=== PATIENT | female | born 1975 | race Caucasian/White ===

== ENCOUNTER 2019-12-21 14:36 | Emergency (ER) | payer OTHER ==
[~2019-12-21] VITALS: Ht 157.5 cm; Wt 79.9 kg
[2019-12-21 15:20] LABS: BASOPHILS # (AUTO) 0.1 X10'3 (0-0.2); EOSINOPHILS # (AUTO) 0.2 X10'3 (0-0.9); HEMATOCRIT 41.1 % (35.0-45.0); HEMOGLOBIN 13.7 g/dl (12.0-16.0); LYMPHOCYTES # (AUTO) 1.9 X10'3 (1.1-4.8); LYMPHOCYTES % (AUTO) 24.1 % (21-51); MEAN CORPUSCULAR HEMOGLOBIN 28.2 PG (27.0-31.0); MEAN CORPUSCULAR HGB CONC 33.4 g/dL (33.0-36.5); MEAN CORPUSCULAR VOLUME 84.3 FL (78-98); MEAN PLATELET VOLUME 8.3 FL (7.4-10.4); MONOCYTES # (AUTO) 0.6 X10'3 (0-0.9); MONOCYTES % (AUTO) 7.2 % (2-12); NEUTROPHILS # (AUTO) 5.1 X10'3 (1.8-7.7); NEUTROPHILS % (AUTO) 65.7 % (42-75); PLATELET COUNT 248 X10'3 (140-440); RED BLOOD COUNT 4.88 X10'6 (4.20-5.60); RED CELL DISTRIBUTION WIDTH 13.7 % (11.5-14.5); WHITE BLOOD COUNT 7.8 X10'3 (4.5-11.0)
[2019-12-21 15:35] LABS: ALANINE AMINOTRANSFERASE 15 U/L (12-78); ALBUMIN 3.5 G/DL (3.4-5.0); ALBUMIN/GLOBULIN RATIO 0.9 (1.1-1.5); ALKALINE PHOSPHATASE 88 IU/L (46-116); ANION GAP 8 (8-16); ASPARTATE AMINO TRANSFERASE 11 U/L (10-37); BILIRUBIN,TOTAL 0.3 MG/DL (0.1-1.0); BLOOD UREA NITROGEN 12 MG/DL (7-18); BUN/CREATININE RATIO 14.1 (6.6-38.0); CALCIUM 8.8 MG/DL (8.5-10.1); CHLORIDE 104 MMOL/L (99-107); CREATININE 0.85 MG/DL (0.40-0.90); GLUCOSE 119 MG/DL (70-104); POTASSIUM 3.7 MMOL/L (3.5-5.1); SODIUM 138 MMOL/L (135-145); TOTAL CARBON DIOXIDE 25.6 MMOL/L (24-32); TOTAL PROTEIN 7.4 G/DL (6.4-8.2); eGFR 72 ML/MIN
[2019-12-21] MEDS ORDERED: normal saline 1000ML IV soln IVB ONE (17:35)
[2019-12-21 19:14] VITALS: BP 114/71
== END 2019-12-21 19:17 | disposition home or self-care (01) ==
LOC: ER 14:37
DX: I49.3 Ventricular premature depolarization (principal); R06.02 Shortness of breath; R00.2 Palpitations; R42 Dizziness and giddiness; G43.909 Migraine, unspecified, not intractable, without status migrainosus; E78.00 Pure hypercholesterolemia, unspecified; J45.909 Unspecified asthma, uncomplicated; E05.90 Thyrotoxicosis, unspecified without thyrotoxic crisis or storm; Z88.0 Allergy status to penicillin; Z88.8 Allergy status to other drugs, medicaments and biological substances
CPT/HCPCS: 36415; 71045; 80053; 83880; 84484; 85025; 93005; 96360; 99285; J7030

== ENCOUNTER 2024-03-08 07:37 | Day surgery (SDC) | payer BC ==
[~2024-03-08] VITALS: Ht 157.5 cm; Wt 82.6 kg
[~2024-03-08 07:37] MED LIST: ceFAZolin 2gm in dextrose, iso 50 ML IV ONE
[2024-03-08 08:22] VITALS: BP 106/56; PULSE 61; RESP 12; TEMP 97.7; O2SAT 98
[2024-03-08 08:47] LABS: BASOPHILS % (AUTO) 0.6 % (0-1); EOSINOPHILS # (AUTO) 0.2 X10'3 (0-0.9); EOSINOPHILS % (AUTO) 3.5 % (0-6); HEMATOCRIT 45.1 % (35.0-45.0); HEMOGLOBIN 14.9 g/dl (12.0-16.0); LYMPHOCYTES # (AUTO) 1.8 X10'3 (1.1-4.8); LYMPHOCYTES % (AUTO) 25.4 % (21-51); MEAN CORPUSCULAR HEMOGLOBIN 28.5 PG (27.0-31.0); MEAN CORPUSCULAR HGB CONC 33.1 g/dL (33.0-36.5); MEAN PLATELET VOLUME 8.1 FL (7.4-10.4); MONOCYTES # (AUTO) 0.5 X10'3 (0-0.9); MONOCYTES % (AUTO) 7.6 % (2-12); NEUTROPHILS # (AUTO) 4.5 X10'3 (1.8-7.7); NEUTROPHILS % (AUTO) 62.9 % (42-75); PLATELET COUNT 244 X10'3 (140-440); RED BLOOD COUNT 5.25 X10'6 (4.20-5.60); RED CELL DISTRIBUTION WIDTH 13.9 % (11.5-14.5); WHITE BLOOD COUNT 7.1 X10'3 (4.5-11.0)
[2024-03-08] MEDS ORDERED: FLUO40CA PO (08:49)
[2024-03-08] MEDS ORDERED: METO-395 PO (08:49)
[2024-03-08] MEDS ORDERED: SUMA100T16 PO (08:49)
[2024-03-08] MEDS ORDERED: CETI10CA PO (08:49)
[2024-03-08] MEDS ORDERED: LEVO50TA PO (08:49)
[2024-03-08] MEDS ORDERED: FLEC50TA PO (08:49)
[2024-03-08] MEDS ORDERED: MAGN100T5 (08:50)
[2024-03-08] MEDS ORDERED: ROSU10TA72 PO (08:53)
[2024-03-08] MEDS ORDERED: OMEG-133 PO (08:54)
[2024-03-08 08:56] LABS: ALBUMIN 3.7 G/DL (3.4-5.0); ANION GAP 7 (8-16); BLOOD UREA NITROGEN 18 MG/DL (7-18); BUN/CREATININE RATIO 21.2 (10.0-20.0); CALCIUM 8.6 MG/DL (8.5-10.1); CHLORIDE 104 MMOL/L (99-107); CREATININE 0.85 MG/DL (0.40-0.90); GLUCOSE 86 MG/DL (70-104); MAGNESIUM 2.2 MG/DL (1.5-2.4); POTASSIUM 4.1 MMOL/L (3.5-5.1); SODIUM 138 MMOL/L (135-145); TOTAL CARBON DIOXIDE 26.9 MMOL/L (24-32); eCRCL 63 ML/MIN; eGFR 71 ML/MIN
[2024-03-08 08:58] LABS: PROTHROMBIN TIME 10.9 SECONDS (9.0-12.0)
[2024-03-08] MEDS: vancomycin 1,500 MG in NS 300ml IV soln IV ONE (09:08)
[2024-03-08] MEDS: normal saline 1000ml 1,000 ML IV SCH (09:08)
[2024-03-08] MEDS ORDERED: fentaNYL/PF 50MCG/1 ML 2ML syringe ONE (11:43)
[2024-03-08] MEDS ORDERED: midazolam 1 mg/ML 2ml injection ONE ×3 (11:43→12:37)
[2024-03-08] MEDS ORDERED: LIDOcaine 1% W/epiNEPHrine 1:100,000 20ml vial ONE (11:43)
[2024-03-08 13:00] VITALS: BP 101/63; PULSE 70; RESP 12; O2SAT 95
[2024-03-08 13:15] VITALS: BP 116/74; PULSE 70; RESP 12; O2SAT 96
[2024-03-08 13:30] VITALS: BP 112/69; PULSE 67; RESP 10; O2SAT 97
[2024-03-08 13:45] VITALS: BP 107/72; PULSE 67; RESP 12; O2SAT 97
[2024-03-08 14:00] VITALS: BP 105/70; PULSE 68; RESP 12; O2SAT 98
[2024-03-08] MEDS: diphenhydrAMINE 50 mg/ml inj IV ONE (14:29)
== END 2024-03-08 14:55 | disposition home or self-care (01) ==
LOC: SSTAY O 07:37
PROVIDERS: ATTEND Internal Medicine Cardiovascular Disease
DX: Z45.09 Encounter for adjustment and management of other cardiac device (principal); R94.31 Abnormal electrocardiogram [ECG] [EKG]; E78.5 Hyperlipidemia, unspecified; E03.9 Hypothyroidism, unspecified; J45.909 Unspecified asthma, uncomplicated; G43.909 Migraine, unspecified, not intractable, without status migrainosus; Z87.891 Personal history of nicotine dependence; Z79.890 Hormone replacement therapy; Z79.899 Other long term (current) drug therapy; Z90.89 Acquired absence of other organs; Z98.890 Other specified postprocedural states; Z88.0 Allergy status to penicillin; Z88.8 Allergy status to other drugs, medicaments and biological substances; Z82.49 Family history of ischemic heart disease and other diseases of the circulatory system
CPT/HCPCS: 33286; 36415; 80048; 83735; 85025; 85610; 93005; 99152; 99153; J1200; J2250; J3010; J3372; J3490; J7030; A6258; A6449